=== PATIENT | female | born 1935 | race Caucasian/White ===

== ENCOUNTER 2017-07-24 12:02 | Inpatient (IN) ==
[2017-07-24] MEDS ORDERED: ALBUTEROL/IPRATROPIUM 3 ML NEB RESP TX STA (12:14)
[2017-07-24] MEDS ORDERED: SODIUM CHLORIDE 0.9% 500 ML IV STA (12:14)
[2017-07-24] MEDS ORDERED: CLINDAMYCIN INJ 900 MG in PREMIX 1 EACH IV STA (12:17)
[2017-07-24] MEDS ORDERED: methylPREDNISolone SOD SUC 125 MG/2 ML VIAL IV STA (12:18)
[2017-07-24 13:12] LABS: Basophils # 0.1 10*3/uL (0.0-0.2); Basophils % 0.3 % (0.0-0.8); Hematocrit 34.6 VOL% (35.7-47.0); Hemoglobin 11.1 GM/DL (12.0-16.0); Immature Granulocytes % 0.7 %; Immature Granulocytes Absolute 0.15 #; Lymphocytes # 1.1 10*3/uL (1.4-4.0); Lymphocytes % 5.1 % (21.3-54.2); Mean Corpuscular HGB Conc 32.1 GM/DL (32-36); Mean Corpuscular Hemoglobin 29 PG (27-34); Mean Corpuscular Volume 89.4 FL (87-102); Mean Platelet Volume 12.8 FL (9.6-12.0); Monocytes # 1.1 10*3/uL (0.11-0.8); Neutrophils # 19.7 10*3/uL (1.4-7.4); Neutrophils % 88.9 % (38.7-73.9); Platelet Count 197 T/CUMM (130-400); Red Blood Count 3.87 MC/CUMM (3.8-5.5); Red Cell Distribution Width 16.1 % (9.3-17.3); White Blood Count 22.2 T/CUMM (4-12)
[2017-07-24 13:16] LABS: PT Patient Result 10.9 SECS
[2017-07-24] MEDS ORDERED: methylPREDNISolone SOD SUC 125 MG/2 ML VIAL ONE (13:18)
[2017-07-24] MEDS ORDERED: CLINDAMYCIN INJ 50 ML IV ONE (13:18)
[2017-07-24] MEDS ORDERED: DOXYCYCLINE HYCLATE INJ 100 MG in SODIUM CHLORIDE 0.9% 100 ML IV STA (13:23)
[2017-07-24] MEDS ORDERED: SODIUM CHLORIDE 0.9% 1,000 ML IV STA (13:23)
[2017-07-24 13:26] LABS: Apearance,Urine CLOUDY (Clear); Bilirubin,Urine Negative (Negative); Blood, Urine Negative (Negative); Glucose,Urine (UA) 150 mg/dL (Negative); Hyaline Casts,Urine 7 /LPF (0-3); Ketones,Urine Negative (Negative); Mucus,Urine Occasional /LPF (Occasional); Nitrite,Urine Negative (Negative); Protein,Urine 30 MG/DL; RBC,Urine 1 /HPF (0-4); Squamous Epithelial Cell,Urine Occasional /HPF (0-10); Urine Color Amber (Yellow); Urine Specific Gravity 1.018 (1.001-1.035); WBC,Urine 2 /HPF (0-6)
[2017-07-24 13:36] LABS: Albumin 2.8 G/DL (3.4-5.0); Bilirubin,Total 0.7 MG/DL (0.2-1.0); Calcium 10.7 MG/DL (8.5-10.1); Osmolality,Calculated 284.7 MOS/KG (273-304); Potassium 4.4 MMOL/L (3.5-5.1); Total Protein 6.7 G/DL (6.4-8.3)
[2017-07-24] MEDS ORDERED: DOXYCYCLINE HYCLATE 100 MG VIAL ONE (14:10)
[2017-07-24] MEDS ORDERED: MORPHINE 2 MG/1 ML SYRINGE IV PRN (15:40)
[2017-07-24] MEDS ORDERED: DEXTROSE 50% 25 GM/50 ML VIAL IV PRN (15:40)
[2017-07-24] MEDS ORDERED: GLUCAGON 1 MG VIAL IM PRN (15:40)
[2017-07-24 16:30] LABS: Band Neutrophils 8 % (0-10); Lymphocytes 4 % (20-55); Platelet Estimate Normal; Segmented Neutrophils 82 % (50-85); Total Cells Counted 100
[2017-07-24] MEDS: SODIUM CHLORIDE 0.9% 1,000 ML IV SCH (16:58)
[2017-07-24] MEDS: INSULIN LISPRO 100 UNIT/ML SUBCUT SCH ×3 (17:24→21:47)
[2017-07-24] MEDS: metFORMIN 500 MG TABLET PEG SCH (18:00)
[2017-07-24] MEDS: PANTOPRAZOLE 40 MG TABLET PO SCH (18:00)
[2017-07-24] MEDS: CALCIUM (CARBONATE)/VITAMIN D 600 MG-400 UNIT TABLET PEG SCH (20:35)
[2017-07-24] MEDS: PREGABALIN 75 MG CAPSULE PEG SCH (20:36)
[2017-07-24] MEDS: DIAZEPAM 5 MG TABLET PEG SCH (20:36)
[2017-07-24] MEDS: ATORVASTATIN 10 MG TABLET PEG SCH (20:36)
[2017-07-24] MEDS: BACLOFEN 10 MG TABLET PEG SCH (20:36)
[2017-07-24] MEDS: CLINDAMYCIN INJ 900 MG in PREMIX 1 EACH IV SCH (20:48)
[2017-07-25] MEDS: DOXYCYCLINE HYCLATE INJ 100 MG in SODIUM CHLORIDE 0.9% 100 ML IV SCH ×2 (00:13→14:13)
[2017-07-25] MEDS: SODIUM CHLORIDE 0.9% 1,000 ML IV SCH ×3 (01:55→15:55)
[2017-07-25] MEDS: CLINDAMYCIN INJ 900 MG in PREMIX 1 EACH IV SCH ×3 (03:52→21:05)
[2017-07-25 06:15] LABS: Basophils % 0.1 % (0.0-0.8); Hematocrit 28.8 VOL% (35.7-47.0); Hemoglobin 9.4 GM/DL (12.0-16.0); Immature Granulocytes % 0.5 %; Immature Granulocytes Absolute 0.09 #; Lymphocytes # 0.7 10*3/uL (1.4-4.0); Mean Corpuscular HGB Conc 32.6 GM/DL (32-36); Mean Corpuscular Hemoglobin 29 PG (27-34); Mean Corpuscular Volume 87.5 FL (87-102); Mean Platelet Volume 13.4 FL (9.6-12.0); Monocytes # 0.8 10*3/uL (0.11-0.8); Monocytes % 4.2 % (1.7-12.7); Neutrophils # 16.9 10*3/uL (1.4-7.4); Neutrophils % 91.2 % (38.7-73.9); Platelet Count 165 T/CUMM (130-400); Red Blood Count 3.29 MC/CUMM (3.8-5.5); Red Cell Distribution Width 16.1 % (9.3-17.3); White Blood Count 18.5 T/CUMM (4-12)
[2017-07-25 06:39] LABS: Band Neutrophils 8 % (0-10); Giant Platelets Few; Hypochromasia 1+; Lymphocytes 4 % (20-55); Platelet Estimate Normal; Segmented Neutrophils 86 % (50-85); Total Cells Counted 100
[2017-07-25 06:40] LABS: Microcytosis Slight
[2017-07-25 06:51] LABS: Calcium 9.3 MG/DL (8.5-10.1); Osmolality,Calculated 288.7 MOS/KG (273-304); Potassium 4.8 MMOL/L (3.5-5.1)
[2017-07-25] MEDS: INSULIN LISPRO 100 UNIT/ML SUBCUT SCH ×4 (08:52→21:06)
[2017-07-25] MEDS: PANTOPRAZOLE 40 MG TABLET PO SCH (09:33)
[2017-07-25] MEDS: metFORMIN 500 MG TABLET PEG SCH ×2 (09:33→16:43)
[2017-07-25] MEDS: MULTIVITAMIN (CENTRUM) TABLET PEG SCH (09:33)
[2017-07-25] MEDS: FAMOTIDINE 20 MG TABLET PEG SCH (09:33)
[2017-07-25] MEDS: DIAZEPAM 5 MG TABLET PEG SCH ×2 (10:28→21:11)
[2017-07-25] MEDS: CALCIUM (CARBONATE)/VITAMIN D 600 MG-400 UNIT TABLET PEG SCH ×2 (10:28→21:05)
[2017-07-25] MEDS: PREGABALIN 75 MG CAPSULE PEG SCH (21:05)
[2017-07-25] MEDS: ATORVASTATIN 10 MG TABLET PEG SCH (21:05)
[2017-07-25] MEDS: BACLOFEN 10 MG TABLET PEG SCH (21:05)
[2017-07-25] MEDS: ZINC OXIDE PASTE 113 GM TUBE TOP SCH (21:07)
[2017-07-26] MEDS: DOXYCYCLINE HYCLATE INJ 100 MG in SODIUM CHLORIDE 0.9% 100 ML IV SCH (01:25)
[2017-07-26] MEDS: SODIUM CHLORIDE 0.9% 1,000 ML IV SCH (04:39)
[2017-07-26] MEDS: CLINDAMYCIN INJ 900 MG in PREMIX 1 EACH IV SCH (04:39)
[2017-07-26 07:41] LABS: Basophils % 0.2 % (0.0-0.8); Eosinophils # 0.1 10*3/uL (0.0-0.87); Eosinophils % 1.1 % (0.00-10.9); Hematocrit 29.3 VOL% (35.7-47.0); Hemoglobin 9.6 GM/DL (12.0-16.0); Immature Granulocytes % 1.2 %; Immature Granulocytes Absolute 0.15 #; Lymphocytes # 1.8 10*3/uL (1.4-4.0); Lymphocytes % 13.8 % (21.3-54.2); Mean Corpuscular HGB Conc 32.8 GM/DL (32-36); Mean Corpuscular Hemoglobin 29 PG (27-34); Mean Corpuscular Volume 88.3 FL (87-102); Mean Platelet Volume 12.9 FL (9.6-12.0); Neutrophils # 9.7 10*3/uL (1.4-7.4); Neutrophils % 75.7 % (38.7-73.9); Platelet Count 168 T/CUMM (130-400); Red Blood Count 3.32 MC/CUMM (3.8-5.5); Red Cell Distribution Width 16.6 % (9.3-17.3); White Blood Count 12.8 T/CUMM (4-12)
[2017-07-26 08:11] LABS: Calcium 9.1 MG/DL (8.5-10.1); Osmolality,Calculated 301.3 MOS/KG (273-304); Potassium 4.2 MMOL/L (3.5-5.1)
[2017-07-26 08:45] VITALS: BP 119/61
[2017-07-26] MEDS: FAMOTIDINE 20 MG TABLET PEG SCH (09:32)
[2017-07-26] MEDS: MULTIVITAMIN (CENTRUM) TABLET PEG SCH (09:32)
[2017-07-26] MEDS: metFORMIN 500 MG TABLET PEG SCH (09:32)
[2017-07-26] MEDS: CALCIUM (CARBONATE)/VITAMIN D 600 MG-400 UNIT TABLET PEG SCH (09:33)
[2017-07-26] MEDS: INSULIN LISPRO 100 UNIT/ML SUBCUT SCH (09:33)
[2017-07-26] MEDS: DIAZEPAM 5 MG TABLET PEG SCH (09:34)
[2017-07-26] MEDS: PANTOPRAZOLE 40 MG TABLET PO SCH (09:37)
[2017-07-26] MEDS: ZINC OXIDE PASTE 113 GM TUBE TOP SCH (09:37)
== END 2017-07-26 14:49 | disposition home health service (06) | DRG 871 ==
LOC: EDBD → EDUNIT# → N.ED 12:02 → N.EDINP 13:51 → SUATTDRO 13:51 → N.EDINP 16:10 → N.5E 17:01
PROVIDERS: ADMIT Hospitalist; ATTEND Internal Medicine

== ENCOUNTER 2018-02-19 13:15 | Inpatient (IN) ==
[2018-02-19] MEDS ORDERED: DEXTROSE 50% 25 GM/50 ML SYRINGE IV ONE (13:29)
[2018-02-19 14:20] LABS: Basophils % 0.1 % (0.0-0.8); Eosinophils # 0.1 10*3/uL (0.0-0.87); Eosinophils % 1.3 % (0.00-10.9); Hematocrit 38.1 VOL% (35.7-47.0); Immature Granulocytes % 0.4 %; Immature Granulocytes Absolute 0.03 #; Lymphocytes % 13.4 % (21.3-54.2); Mean Corpuscular HGB Conc 31.5 GM/DL (32-36); Mean Corpuscular Hemoglobin 28 PG (27-34); Mean Corpuscular Volume 88.8 FL (87-102); Mean Platelet Volume 14.2 FL (9.6-12.0); Monocytes # 0.7 10*3/uL (0.11-0.8); Monocytes % 8.5 % (1.7-12.7); Neutrophils # 5.9 10*3/uL (1.4-7.4); Neutrophils % 76.3 % (38.7-73.9); Platelet Count 132 T/CUMM (130-400); Red Blood Count 4.29 MC/CUMM (3.8-5.5); Red Cell Distribution Width 18.3 % (9.3-17.3); White Blood Count 7.8 T/CUMM (4-12)
[2018-02-19 14:34] LABS: Apearance,Urine Slightly Hazy (Clear); Bilirubin,Urine Negative (Negative); Blood, Urine Negative (Negative); Glucose,Urine (UA) Negative (Negative); Hyaline Casts,Urine 7 /LPF (0-3); Ketones,Urine Negative (Negative); Mucus,Urine Occasional /LPF (Occasional); Nitrite,Urine Negative (Negative); Protein,Urine Negative; Squamous Epithelial Cell,Urine Occasional /HPF (0-10); Urine Color Yellow (Yellow); Urine Specific Gravity 1.008 (1.001-1.035); Urine Urobilinogen < 2.0 EU/DL (0.2-1.0); WBC,Urine 2 /HPF (0-6)
[2018-02-19 14:42] LABS: Alanine Aminotransferase 55 U/L (13-56); Albumin 3.2 G/DL (3.4-5.0); Alkaline Phosphatase 129 U/L (45-117); Aspartate Amino Transferase 33 U/L (0-37); Bilirubin,Total < 0.39 MG/DL (0.2-1.0); Blood Urea Nitrogen 36 MG/DL (7-18); Calcium 13.4 MG/DL (8.5-10.1); Glucose 81 MG/DL (74-106); Osmolality,Calculated 289.1 MOS/KG (273-304); Potassium 5.4 MMOL/L (3.5-5.1); Sodium 142 MMOL/L (136-145); Total Protein 7.2 G/DL (6.4-8.3)
[2018-02-19 14:47] LABS: Lactic Acid 2.3 MMOL/L (0.4-2.0)
[2018-02-19] MEDS ORDERED: SODIUM CHLORIDE 0.9% 1,000 ML IV STA (15:52)
[2018-02-19] MEDS ORDERED: FUROSEMIDE 40 MG/4 ML VIAL IV STA (16:03)
[2018-02-19] MEDS ORDERED: GLUCAGON 1 MG VIAL IM PRN (17:51)
[2018-02-19] MEDS: INSULIN LISPRO 100 UNIT/ML SUBCUT SCH (18:33)
[2018-02-19] MEDS: ENOXAPARIN 40 MG/0.4 ML SYRINGE SUBCUT SCH (18:35)
[2018-02-19] MEDS: SODIUM CHLORIDE 0.9% 1,000 ML IV SCH (18:35)
[2018-02-19] MEDS ORDERED: LABETALOL 100 MG/20 ML VIAL IV ONE (19:01)
[2018-02-19] MEDS ORDERED: SODIUM POLYSTYRENE SULFATE 15 GM/60 ML BOTTLE PO STA (21:50)
[2018-02-19] MEDS: ATORVASTATIN 10 MG TABLET PEG SCH (22:48)
[2018-02-19] MEDS: DIAZEPAM 5 MG TABLET PEG SCH (22:48)
[2018-02-19] MEDS: BACLOFEN 10 MG TABLET PEG SCH (22:48)
[2018-02-19] MEDS: PREGABALIN 75 MG CAPSULE PEG SCH (22:49)
[2018-02-19] MEDS: DOXYCYCLINE HYCLATE INJ 100 MG in SODIUM CHLORIDE 0.9% 100 ML IV SCH (23:55)
[2018-02-20] MEDS: INSULIN LISPRO 100 UNIT/ML SUBCUT SCH ×4 (00:40→18:30)
[2018-02-20 02:47] LABS: Apearance,Urine CLEAR (Clear); Bilirubin,Urine Negative (Negative); Blood, Urine Negative (Negative); Glucose,Urine (UA) Negative (Negative); Hyaline Casts,Urine 2 /LPF (0-3); Ketones,Urine Negative (Negative); Nitrite,Urine Negative (Negative); Protein,Urine Negative; RBC,Urine <1 /HPF (0-4); Urine Color Straw (Yellow); Urine Specific Gravity 1.004 (1.001-1.035); Urine Urobilinogen < 2.0 EU/DL (0.2-1.0); WBC,Urine <1 /HPF (0-6)
[2018-02-20 05:05] LABS: Basophils % 0.2 % (0.0-0.8); Eosinophils # 0.1 10*3/uL (0.0-0.87); Eosinophils % 1.3 % (0.00-10.9); Hematocrit 36.2 VOL% (35.7-47.0); Hemoglobin 11.2 GM/DL (12.0-16.0); Immature Granulocytes % 0.6 %; Immature Granulocytes Absolute 0.04 #; Mean Corpuscular HGB Conc 30.9 GM/DL (32-36); Mean Corpuscular Hemoglobin 28 PG (27-34); Mean Platelet Volume 13.4 FL (9.6-12.0); Monocytes # 0.7 10*3/uL (0.11-0.8); Monocytes % 11.2 % (1.7-12.7); Neutrophils # 4.6 10*3/uL (1.4-7.4); Neutrophils % 71.7 % (38.7-73.9); Platelet Count 107 T/CUMM (130-400); Red Blood Count 3.98 MC/CUMM (3.8-5.5); Red Cell Distribution Width 18.1 % (9.3-17.3); White Blood Count 6.4 T/CUMM (4-12)
[2018-02-20] MEDS: DEXTROSE 50% 25 GM/50 ML VIAL IV PRN ×2 (05:18→12:42)
[2018-02-20 05:36] LABS: Albumin 2.6 G/DL (3.4-5.0); Bilirubin,Total 0.4 MG/DL (0.2-1.0); Calcium 12.5 MG/DL (8.5-10.1); Osmolality,Calculated 301.1 MOS/KG (273-304); Potassium 4.2 MMOL/L (3.5-5.1); Risk Ratio 1.91; Total Protein 6.3 G/DL (6.4-8.3); VLDL CHOLESTEROL 35.2 MG/DL
[2018-02-20] MEDS: SODIUM CHLORIDE 0.9% 1,000 ML IV SCH (06:02)
[2018-02-20] MEDS ORDERED: metFORMIN 500 MG TABLET PEG SCH (08:00)
[2018-02-20] MEDS: FAMOTIDINE 20 MG TABLET PEG SCH (09:52)
[2018-02-20] MEDS: DOXYCYCLINE HYCLATE INJ 100 MG in SODIUM CHLORIDE 0.9% 100 ML IV SCH ×2 (09:53→22:40)
[2018-02-20] MEDS: CALCITONIN 400 UNIT/2 ML VIAL SUBCUT SCH (16:56)
[2018-02-20] MEDS: SKIN HEALING OINT (AQUAPHOR) 50 GM TUBE TOP SCH (18:30)
[2018-02-20] MEDS: BACLOFEN 10 MG TABLET PEG SCH (20:42)
[2018-02-20] MEDS: DIAZEPAM 5 MG TABLET PEG SCH (20:42)
[2018-02-20] MEDS: ATORVASTATIN 10 MG TABLET PEG SCH (20:42)
[2018-02-20] MEDS: PREGABALIN 75 MG CAPSULE PEG SCH (20:42)
[2018-02-21] MEDS: INSULIN LISPRO 100 UNIT/ML SUBCUT SCH ×4 (03:02→18:56)
[2018-02-21] MEDS: CALCITONIN 400 UNIT/2 ML VIAL SUBCUT SCH ×2 (03:40→19:40)
[2018-02-21 05:51] LABS: Basophils % 0.1 % (0.0-0.8); Eosinophils # 0.1 10*3/uL (0.0-0.87); Hematocrit 36.5 VOL% (35.7-47.0); Hemoglobin 11.3 GM/DL (12.0-16.0); Immature Granulocytes % 0.3 %; Immature Granulocytes Absolute 0.03 #; Lymphocytes # 0.9 10*3/uL (1.4-4.0); Lymphocytes % 10.3 % (21.3-54.2); Mean Corpuscular Hemoglobin 28 PG (27-34); Mean Platelet Volume 13.7 FL (9.6-12.0); Monocytes # 0.7 10*3/uL (0.11-0.8); Monocytes % 8.2 % (1.7-12.7); Neutrophils % 80.1 % (38.7-73.9); Platelet Count 117 T/CUMM (130-400); Red Blood Count 4.01 MC/CUMM (3.8-5.5); Red Cell Distribution Width 18.3 % (9.3-17.3); White Blood Count 8.8 T/CUMM (4-12)
[2018-02-21 06:27] LABS: Prealbumin 32.8 MG/DL (20-40)
[2018-02-21 06:41] LABS: Alanine Aminotransferase 51 U/L (13-56); Albumin 2.8 G/DL (3.4-5.0); Alkaline Phosphatase 126 U/L (45-117); Aspartate Amino Transferase 32 U/L (0-37); Bilirubin,Total < 0.39 MG/DL (0.2-1.0); Blood Urea Nitrogen 32 MG/DL (7-18); Calcium 10.6 MG/DL (8.5-10.1); Glucose 106 MG/DL (74-106); Osmolality,Calculated 298.4 MOS/KG (273-304); Potassium 4.2 MMOL/L (3.5-5.1); Sodium 147 MMOL/L (136-145); Total Protein 6.5 G/DL (6.4-8.3)
[2018-02-21] MEDS: DOXYCYCLINE HYCLATE INJ 100 MG in SODIUM CHLORIDE 0.9% 100 ML IV SCH (10:50)
[2018-02-21] MEDS: FAMOTIDINE 20 MG TABLET PEG SCH (11:13)
[2018-02-21] MEDS ORDERED: SODIUM CHLORIDE 0.9% 1,000 ML IV SCH ×2 (12:30→13:00)
[2018-02-21 13:53] LABS: Troponin I Only < 0.015 NG/ML (0.00-0.045)
[2018-02-21 14:08] LABS: Folate 22.4 NG/ML (5.4-24.0)
[2018-02-21] MEDS: ACETYLCYSTEINE 20% 800 MG/4 ML VIAL RESP TX SCH (14:15)
[2018-02-21] MEDS: SKIN HEALING OINT (AQUAPHOR) 50 GM TUBE TOP SCH (18:25)
[2018-02-21] MEDS: POTASSIUM PHOS/SOD PHOS POWDER 250 MG PACK PO SCH (19:40)
[2018-02-21] MEDS: ENOXAPARIN 40 MG/0.4 ML SYRINGE SUBCUT SCH (19:45)
[2018-02-21] MEDS: SODIUM CHLORIDE 0.45% 1,000 ML IV SCH (19:45)
[2018-02-21] MEDS: DIAZEPAM 5 MG TABLET PEG SCH (21:26)
[2018-02-21] MEDS: BACLOFEN 10 MG TABLET PEG SCH (21:26)
[2018-02-21] MEDS: ATORVASTATIN 10 MG TABLET PEG SCH (21:27)
[2018-02-21] MEDS: PREGABALIN 75 MG CAPSULE PEG SCH (21:27)
[2018-02-22] MEDS: DOXYCYCLINE HYCLATE INJ 100 MG in SODIUM CHLORIDE 0.9% 100 ML IV SCH ×3 (00:15→23:06)
[2018-02-22] MEDS: INSULIN LISPRO 100 UNIT/ML SUBCUT SCH ×4 (00:38→18:46)
[2018-02-22] MEDS: ACETYLCYSTEINE 20% 800 MG/4 ML VIAL RESP TX SCH ×3 (00:40→14:56)
[2018-02-22] MEDS: ALBUTEROL 2.5 MG/3 ML NEB RESP TX PRN ×2 (00:40→07:36)
[2018-02-22] MEDS: CALCITONIN 400 UNIT/2 ML VIAL SUBCUT SCH ×2 (04:10→15:15)
[2018-02-22] MEDS: POTASSIUM PHOS/SOD PHOS POWDER 250 MG PACK PO SCH ×4 (04:13→22:33)
[2018-02-22 04:59] LABS: Calcium 8.6 MG/DL (8.5-10.1); Osmolality,Calculated 301.3 MOS/KG (273-304); Potassium 4.1 MMOL/L (3.5-5.1)
[2018-02-22] MEDS: SODIUM CHLORIDE 0.45% 1,000 ML IV SCH (05:58)
[2018-02-22] MEDS: ONDANSETRON 4 MG/2 ML VIAL IV PRN ×2 (09:35→23:01)
[2018-02-22] MEDS: FAMOTIDINE 20 MG TABLET PEG SCH (10:08)
[2018-02-22] MEDS: SKIN HEALING OINT (AQUAPHOR) 50 GM TUBE TOP SCH (10:09)
[2018-02-22] MEDS: ALBUTEROL/IPRATROPIUM 3 ML NEB RESP TX SCH ×3 (11:39→20:37)
[2018-02-22] MEDS: methylPREDNISolone SOD SUC 40 MG/1 ML VIAL IV SCH ×2 (12:03→23:05)
[2018-02-22] MEDS: CLINDAMYCIN INJ 300 MG in PREMIX 1 EACH IV SCH ×2 (12:04→22:29)
[2018-02-22] MEDS: MONTELUKAST 10 MG TABLET PO SCH (15:15)
[2018-02-22] MEDS: ENOXAPARIN 40 MG/0.4 ML SYRINGE SUBCUT SCH (18:46)
[2018-02-22] MEDS: ATORVASTATIN 10 MG TABLET PEG SCH (22:30)
[2018-02-22] MEDS: PREGABALIN 75 MG CAPSULE PEG SCH (22:32)
[2018-02-22] MEDS: BACLOFEN 10 MG TABLET PEG SCH (22:32)
[2018-02-22] MEDS: DIAZEPAM 5 MG TABLET PEG SCH (22:33)
[2018-02-23] MEDS: ACETYLCYSTEINE 20% 800 MG/4 ML VIAL RESP TX SCH ×3 (00:23→15:07)
[2018-02-23] MEDS: ALBUTEROL/IPRATROPIUM 3 ML NEB RESP TX SCH ×6 (00:23→19:31)
[2018-02-23] MEDS: INSULIN LISPRO 100 UNIT/ML SUBCUT SCH ×4 (01:00→18:48)
[2018-02-23] MEDS: CLINDAMYCIN INJ 300 MG in PREMIX 1 EACH IV SCH ×3 (05:31→21:26)
[2018-02-23] MEDS: CALCITONIN 400 UNIT/2 ML VIAL SUBCUT SCH ×2 (05:32→06:31)
[2018-02-23 05:46] LABS: Basophils % 0.1 % (0.0-0.8); Hematocrit 33.3 VOL% (35.7-47.0); Hemoglobin 10.9 GM/DL (12.0-16.0); Immature Granulocytes % 0.3 %; Immature Granulocytes Absolute 0.08 #; Lymphocytes # 0.4 10*3/uL (1.4-4.0); Lymphocytes % 1.5 % (21.3-54.2); Mean Corpuscular HGB Conc 32.7 GM/DL (32-36); Mean Corpuscular Hemoglobin 28 PG (27-34); Mean Corpuscular Volume 86.7 FL (87-102); Mean Platelet Volume 14.1 FL (9.6-12.0); Monocytes # 1.7 10*3/uL (0.11-0.8); Monocytes % 7.3 % (1.7-12.7); Neutrophils # 21.4 10*3/uL (1.4-7.4); Neutrophils % 90.8 % (38.7-73.9); Platelet Count 103 T/CUMM (130-400); Red Blood Count 3.84 MC/CUMM (3.8-5.5); Red Cell Distribution Width 18.6 % (9.3-17.3); White Blood Count 23.6 T/CUMM (4-12)
[2018-02-23 06:15] LABS: Band Neutrophils 10 % (0-10); Lymphocytes 1 % (20-55); Segmented Neutrophils 83 % (50-85); Total Cells Counted 100
[2018-02-23 06:16] LABS: Hypochromasia 1+; Microcytosis 1+; Platelet Estimate Decreased
[2018-02-23 06:42] LABS: PT Patient Result 10.7 SECS; Partial Thromboplastin Time 27.5 SECS (0-40)
[2018-02-23] MEDS ORDERED: BENZONATATE 100 MG CAPSULE PO ONE (08:00)
[2018-02-23] MEDS ORDERED: diphenhydrAMINE 50 MG/1 ML VIAL IM ONE (08:00)
[2018-02-23] MEDS ORDERED: LIDOCAINE 2% VISCOUS 100 ML BOTTLE SWISH/SPIT ONE (08:30)
[2018-02-23] MEDS ORDERED: LIDOCAINE 1% 20 ML VIAL MISC INJ ONE (08:30)
[2018-02-23] MEDS ORDERED: LIDOCAINE 2% 20 ML VIAL RESP TX ONE (08:30)
[2018-02-23] MEDS: DOXYCYCLINE HYCLATE INJ 100 MG in SODIUM CHLORIDE 0.9% 100 ML IV SCH ×2 (10:58→22:27)
[2018-02-23] MEDS: methylPREDNISolone SOD SUC 40 MG/1 ML VIAL IV SCH ×2 (12:30→22:29)
[2018-02-23] MEDS: FAMOTIDINE 20 MG TABLET PEG SCH (13:09)
[2018-02-23] MEDS: POTASSIUM PHOS/SOD PHOS POWDER 250 MG PACK PO SCH ×3 (13:09→21:24)
[2018-02-23] MEDS: MONTELUKAST 10 MG TABLET PO SCH (13:09)
[2018-02-23] MEDS: SKIN HEALING OINT (AQUAPHOR) 50 GM TUBE TOP SCH (13:43)
[2018-02-23] MEDS: ENOXAPARIN 40 MG/0.4 ML SYRINGE SUBCUT SCH (18:48)
[2018-02-23] MEDS: PREGABALIN 75 MG CAPSULE PEG SCH (21:24)
[2018-02-23] MEDS: BACLOFEN 10 MG TABLET PEG SCH (21:24)
[2018-02-23] MEDS: ATORVASTATIN 10 MG TABLET PEG SCH (21:24)
[2018-02-23] MEDS: DIAZEPAM 5 MG TABLET PEG SCH (21:25)
[2018-02-24] MEDS: ALBUTEROL/IPRATROPIUM 3 ML NEB RESP TX SCH ×7 (00:12→23:53)
[2018-02-24] MEDS: ACETYLCYSTEINE 20% 800 MG/4 ML VIAL RESP TX SCH ×4 (00:12→23:53)
[2018-02-24] MEDS: INSULIN LISPRO 100 UNIT/ML SUBCUT SCH ×4 (00:21→19:09)
[2018-02-24] MEDS: CLINDAMYCIN INJ 300 MG in PREMIX 1 EACH IV SCH ×2 (03:54→14:25)
[2018-02-24 04:52] LABS: Basophils % 0.1 % (0.0-0.8); Hematocrit 28.3 VOL% (35.7-47.0); Hemoglobin 9.1 GM/DL (12.0-16.0); Immature Granulocytes % 0.3 %; Immature Granulocytes Absolute 0.04 #; Lymphocytes # 0.4 10*3/uL (1.4-4.0); Lymphocytes % 2.8 % (21.3-54.2); Mean Corpuscular HGB Conc 32.2 GM/DL (32-36); Mean Corpuscular Hemoglobin 29 PG (27-34); Mean Platelet Volume 13.1 FL (9.6-12.0); Monocytes % 8.1 % (1.7-12.7); Neutrophils # 11.1 10*3/uL (1.4-7.4); Neutrophils % 88.7 % (38.7-73.9); Platelet Count 91 T/CUMM (130-400); Red Blood Count 3.18 MC/CUMM (3.8-5.5); Red Cell Distribution Width 18.4 % (9.3-17.3); White Blood Count 12.5 T/CUMM (4-12)
[2018-02-24 04:54] LABS: INR 1.1; PT Patient Result 11.4 SECS; Partial Thromboplastin Time 31.4 SECS (0-40)
[2018-02-24 05:13] LABS: Calcium 9.4 MG/DL (8.5-10.1); Osmolality,Calculated 303.3 MOS/KG (273-304); Potassium 4.4 MMOL/L (3.5-5.1)
[2018-02-24 05:49] LABS: Band Neutrophils 9 % (0-10); Hypochromasia 1+; Lymphocytes 3 % (20-55); Microcytosis 1+; Platelet Estimate Decreased; Segmented Neutrophils 84 % (50-85); Total Cells Counted 100
[2018-02-24] MEDS ORDERED: diphenhydrAMINE 50 MG/1 ML VIAL IM ONE (08:00)
[2018-02-24] MEDS ORDERED: LIDOCAINE 2% 20 ML VIAL RESP TX ONE (08:30)
[2018-02-24] MEDS ORDERED: LIDOCAINE 2% VISCOUS 100 ML BOTTLE SWISH/SPIT ONE (08:30)
[2018-02-24] MEDS ORDERED: LIDOCAINE 1% 20 ML VIAL MISC INJ ONE (08:30)
[2018-02-24] MEDS ORDERED: DEXTROSE 5% NACL 0.45% 1,000 ML IV SCH (11:30)
[2018-02-24] MEDS: POTASSIUM PHOS/SOD PHOS POWDER 250 MG PACK PO SCH ×4 (12:40→22:27)
[2018-02-24] MEDS: SKIN HEALING OINT (AQUAPHOR) 50 GM TUBE TOP SCH (13:02)
[2018-02-24] MEDS: MONTELUKAST 10 MG TABLET PO SCH (13:02)
[2018-02-24] MEDS: FAMOTIDINE 20 MG TABLET PEG SCH (13:02)
[2018-02-24] MEDS: methylPREDNISolone SOD SUC 40 MG/1 ML VIAL IV SCH (13:08)
[2018-02-24] MEDS: MEROPENEM 500 MG in SODIUM CHLORIDE 0.9% 100 ML IV SCH ×2 (13:13→20:31)
[2018-02-24] MEDS: DOXYCYCLINE HYCLATE INJ 100 MG in SODIUM CHLORIDE 0.9% 100 ML IV SCH (13:29)
[2018-02-24] MEDS ORDERED: BISACODYL 5 MG TABLET PO ONE (17:41)
[2018-02-24] MEDS ORDERED: LACTULOSE 20 GM/30 ML UDCUP PO ONE (17:41)
[2018-02-24] MEDS ORDERED: MAGNESIUM HYDROXIDE SUSP 30 ML UDCUP PO ONE (17:42)
[2018-02-24] MEDS: ENOXAPARIN 40 MG/0.4 ML SYRINGE SUBCUT SCH (18:23)
[2018-02-24 18:30] LABS: Apearance,Urine CLEAR (Clear); Bilirubin,Urine Negative (Negative); Blood, Urine Negative (Negative); Glucose,Urine (UA) 150 mg/dL (Negative); Ketones,Urine Negative (Negative); Nitrite,Urine Negative (Negative); Protein,Urine Negative; RBC,Urine 12 /HPF (0-4); Squamous Epithelial Cell,Urine Occasional /HPF (0-10); Urine Color Yellow (Yellow); Urine Specific Gravity 1.011 (1.001-1.035); Urine Urobilinogen < 2.0 EU/DL (0.2-1.0); WBC,Urine 2 /HPF (0-6)
[2018-02-24] MEDS: VANCOMYCIN INJ 1,000 MG in SODIUM CHLORIDE 0.9% 250 ML IV SCH (22:00)
[2018-02-24] MEDS ORDERED: ACETAMINOPHEN 325 MG TABLET PO PRN (22:04)
[2018-02-24] MEDS: BACLOFEN 10 MG TABLET PEG SCH (22:24)
[2018-02-24] MEDS: DIAZEPAM 5 MG TABLET PEG SCH (22:26)
[2018-02-24] MEDS: PREGABALIN 75 MG CAPSULE PEG SCH (22:26)
[2018-02-24] MEDS: ATORVASTATIN 10 MG TABLET PEG SCH (22:27)
[2018-02-25] MEDS: methylPREDNISolone SOD SUC 40 MG/1 ML VIAL IV SCH ×3 (00:29→23:57)
[2018-02-25] MEDS: INSULIN LISPRO 100 UNIT/ML SUBCUT SCH ×4 (00:30→18:22)
[2018-02-25] MEDS: MEROPENEM 500 MG in SODIUM CHLORIDE 0.9% 100 ML IV SCH ×3 (03:41→21:18)
[2018-02-25] MEDS: ALBUTEROL/IPRATROPIUM 3 ML NEB RESP TX SCH ×6 (03:49→22:54)
[2018-02-25 04:46] LABS: Basophils % 0.1 % (0.0-0.8); Hematocrit 27.3 VOL% (35.7-47.0); Hemoglobin 8.6 GM/DL (12.0-16.0); Immature Granulocytes % 0.6 %; Immature Granulocytes Absolute 0.09 #; Lymphocytes # 0.3 10*3/uL (1.4-4.0); Lymphocytes % 2.1 % (21.3-54.2); Mean Corpuscular HGB Conc 31.5 GM/DL (32-36); Mean Corpuscular Hemoglobin 29 PG (27-34); Mean Corpuscular Volume 90.7 FL (87-102); Mean Platelet Volume 13.7 FL (9.6-12.0); Monocytes # 1.1 10*3/uL (0.11-0.8); Monocytes % 7.6 % (1.7-12.7); Neutrophils # 12.6 10*3/uL (1.4-7.4); Neutrophils % 89.6 % (38.7-73.9); Red Blood Count 3.01 MC/CUMM (3.8-5.5); Red Cell Distribution Width 18.6 % (9.3-17.3)
[2018-02-25 04:50] LABS: Platelet Count 93 T/CUMM (130-400)
[2018-02-25 04:59] LABS: Calcium 9.1 MG/DL (8.5-10.1); Osmolality,Calculated 302.7 MOS/KG (273-304); Potassium 4.3 MMOL/L (3.5-5.1)
[2018-02-25 05:09] LABS: Band Neutrophils 2 % (0-10); Hypochromasia 1+; Lymphocytes 4 % (20-55); Segmented Neutrophils 92 % (50-85); Total Cells Counted 100
[2018-02-25 05:10] LABS: Giant Platelets Few
[2018-02-25 05:12] LABS: Platelet Estimate Decreased
[2018-02-25 05:13] LABS: Microcytosis 1+
[2018-02-25] MEDS: ACETYLCYSTEINE 20% 800 MG/4 ML VIAL RESP TX SCH ×3 (07:26→22:56)
[2018-02-25] MEDS: FAMOTIDINE 20 MG TABLET PEG SCH (10:30)
[2018-02-25] MEDS: MONTELUKAST 10 MG TABLET PO SCH (10:31)
[2018-02-25] MEDS: POTASSIUM PHOS/SOD PHOS POWDER 250 MG PACK PO SCH ×3 (10:31→21:18)
[2018-02-25] MEDS ORDERED: SCOPOLAMINE 1.5 MG PATCH TRANSDERM ONE (11:13)
[2018-02-25] MEDS ORDERED: FUROSEMIDE 40 MG/5 ML UDCUP PO ONE (11:13)
[2018-02-25 12:52] LABS: Calcium 9.8 MG/DL (8.5-10.1); Osmolality,Calculated 301.6 MOS/KG (273-304); Potassium 4.7 MMOL/L (3.5-5.1)
[2018-02-25] MEDS: SKIN HEALING OINT (AQUAPHOR) 50 GM TUBE TOP SCH (18:20)
[2018-02-25] MEDS: ENOXAPARIN 40 MG/0.4 ML SYRINGE SUBCUT SCH (18:22)
[2018-02-25] MEDS: BACLOFEN 10 MG TABLET PEG SCH (21:18)
[2018-02-25] MEDS: DIAZEPAM 5 MG TABLET PEG SCH (21:19)
[2018-02-25] MEDS: PREGABALIN 75 MG CAPSULE PEG SCH (21:19)
[2018-02-25] MEDS: ATORVASTATIN 10 MG TABLET PEG SCH (21:19)
[2018-02-25] MEDS: VANCOMYCIN INJ 1,000 MG in SODIUM CHLORIDE 0.9% 250 ML IV SCH (22:42)
[2018-02-26] MEDS: INSULIN LISPRO 100 UNIT/ML SUBCUT SCH ×4 (00:01→19:02)
[2018-02-26] MEDS: ALBUTEROL/IPRATROPIUM 3 ML NEB RESP TX SCH ×5 (02:25→19:28)
[2018-02-26] MEDS: MEROPENEM 500 MG in SODIUM CHLORIDE 0.9% 100 ML IV SCH ×3 (03:56→21:45)
[2018-02-26 04:15] LABS: Basophils % 0.2 % (0.0-0.8); Hematocrit 28.1 VOL% (35.7-47.0); Hemoglobin 9.1 GM/DL (12.0-16.0); Immature Granulocytes % 2.7 %; Lymphocytes # 0.4 10*3/uL (1.4-4.0); Lymphocytes % 2.9 % (21.3-54.2); Mean Corpuscular HGB Conc 32.4 GM/DL (32-36); Mean Corpuscular Hemoglobin 28 PG (27-34); Mean Corpuscular Volume 87.8 FL (87-102); Mean Platelet Volume 13.4 FL (9.6-12.0); Monocytes # 0.8 10*3/uL (0.11-0.8); Monocytes % 5.6 % (1.7-12.7); Neutrophils # 12.9 10*3/uL (1.4-7.4); Neutrophils % 88.6 % (38.7-73.9); Platelet Count 121 T/CUMM (130-400); Red Cell Distribution Width 18.6 % (9.3-17.3); White Blood Count 14.6 T/CUMM (4-12)
[2018-02-26 05:38] LABS: Hypochromasia 1+; Lymphocytes 1 % (20-55); Platelet Estimate Decreased; Segmented Neutrophils 94 % (50-85); Total Cells Counted 100
[2018-02-26 05:39] LABS: Microcytosis 1+
[2018-02-26] MEDS: ACETYLCYSTEINE 20% 800 MG/4 ML VIAL RESP TX SCH ×2 (07:34→14:20)
[2018-02-26] MEDS: FAMOTIDINE 20 MG TABLET PEG SCH (10:35)
[2018-02-26] MEDS: POTASSIUM PHOS/SOD PHOS POWDER 250 MG PACK PO SCH ×3 (10:35→21:44)
[2018-02-26] MEDS: MONTELUKAST 10 MG TABLET PO SCH (10:36)
[2018-02-26] MEDS: methylPREDNISolone SOD SUC 40 MG/1 ML VIAL IV SCH ×2 (10:50→23:15)
[2018-02-26] MEDS: SKIN HEALING OINT (AQUAPHOR) 50 GM TUBE TOP SCH (16:50)
[2018-02-26] MEDS: ENOXAPARIN 40 MG/0.4 ML SYRINGE SUBCUT SCH (19:02)
[2018-02-26] MEDS: BACLOFEN 10 MG TABLET PEG SCH (21:44)
[2018-02-26] MEDS: ATORVASTATIN 10 MG TABLET PEG SCH (21:45)
[2018-02-26] MEDS: DIAZEPAM 5 MG TABLET PEG SCH (21:45)
[2018-02-26] MEDS: PREGABALIN 75 MG CAPSULE PEG SCH (21:45)
[2018-02-27] MEDS: ALBUTEROL/IPRATROPIUM 3 ML NEB RESP TX SCH ×7 (00:03→23:00)
[2018-02-27] MEDS: ACETYLCYSTEINE 20% 800 MG/4 ML VIAL RESP TX SCH ×4 (00:03→23:00)
[2018-02-27] MEDS: INSULIN LISPRO 100 UNIT/ML SUBCUT SCH ×4 (00:15→18:15)
[2018-02-27 03:14] LABS: Basophils % 0.2 % (0.0-0.8); Eosinophils % 0.1 % (0.00-10.9); Hematocrit 29.2 VOL% (35.7-47.0); Hemoglobin 9.3 GM/DL (12.0-16.0); Immature Granulocytes % 4.2 %; Lymphocytes # 0.6 10*3/uL (1.4-4.0); Lymphocytes % 4.3 % (21.3-54.2); Mean Corpuscular HGB Conc 31.8 GM/DL (32-36); Mean Corpuscular Hemoglobin 29 PG (27-34); Mean Corpuscular Volume 89.8 FL (87-102); Mean Platelet Volume 13.4 FL (9.6-12.0); Monocytes # 1.1 10*3/uL (0.11-0.8); Monocytes % 7.4 % (1.7-12.7); NRBC # 0.03 10*3/uL; Neutrophils # 11.9 10*3/uL (1.4-7.4); Neutrophils % 83.8 % (38.7-73.9); Platelet Count 151 T/CUMM (130-400); Red Blood Count 3.25 MC/CUMM (3.8-5.5); Red Cell Distribution Width 18.1 % (9.3-17.3); White Blood Count 14.2 T/CUMM (4-12)
[2018-02-27 03:22] LABS: PT Patient Result 10.1 SECS; Partial Thromboplastin Time 24.7 SECS (0-40)
[2018-02-27 03:57] LABS: Hypochromasia 1+; Lymphocytes 8 % (20-55); Segmented Neutrophils 84 % (50-85)
[2018-02-27 03:58] LABS: Giant Platelets Few; Microcytosis 1+; Platelet Estimate Normal; Total Cells Counted 100
[2018-02-27] MEDS: MEROPENEM 500 MG in SODIUM CHLORIDE 0.9% 100 ML IV SCH ×3 (05:22→22:11)
[2018-02-27] MEDS ORDERED: diphenhydrAMINE 50 MG/1 ML VIAL IM ONE (08:00)
[2018-02-27] MEDS ORDERED: LIDOCAINE 2% VISCOUS 100 ML BOTTLE SWISH/SPIT ONE (08:30)
[2018-02-27] MEDS ORDERED: LIDOCAINE 2% 20 ML VIAL RESP TX ONE (08:30)
[2018-02-27] MEDS ORDERED: LIDOCAINE 1% 20 ML VIAL MISC INJ ONE (08:30)
[2018-02-27] MEDS: SKIN HEALING OINT (AQUAPHOR) 50 GM TUBE TOP SCH (11:52)
[2018-02-27] MEDS: methylPREDNISolone SOD SUC 40 MG/1 ML VIAL IV SCH (11:53)
[2018-02-27] MEDS: POTASSIUM PHOS/SOD PHOS POWDER 250 MG PACK PO SCH ×3 (11:54→22:11)
[2018-02-27] MEDS: FAMOTIDINE 20 MG TABLET PEG SCH (11:55)
[2018-02-27] MEDS: MONTELUKAST 10 MG TABLET PO SCH (11:55)
[2018-02-27 14:51] LABS: Calcium 9.1 MG/DL (8.5-10.1); Osmolality,Calculated 302.8 MOS/KG (273-304)
[2018-02-27] MEDS: GENTAMICIN INJ 160 MG in SODIUM CHLORIDE 0.9% 100 ML IV SCH (16:54)
[2018-02-27] MEDS: ENOXAPARIN 40 MG/0.4 ML SYRINGE SUBCUT SCH (17:48)
[2018-02-27] MEDS: BACLOFEN 10 MG TABLET PEG SCH (22:11)
[2018-02-27] MEDS: ATORVASTATIN 10 MG TABLET PEG SCH (22:11)
[2018-02-28] MEDS: methylPREDNISolone SOD SUC 40 MG/1 ML VIAL IV SCH ×3 (00:08→23:51)
[2018-02-28] MEDS: INSULIN LISPRO 100 UNIT/ML SUBCUT SCH ×5 (00:46→23:52)
[2018-02-28] MEDS: ALBUTEROL/IPRATROPIUM 3 ML NEB RESP TX SCH ×5 (03:00→19:06)
[2018-02-28 05:01] LABS: Basophils % 0.3 % (0.0-0.8); Eosinophils % 0.2 % (0.00-10.9); Hematocrit 30.1 VOL% (35.7-47.0); Hemoglobin 9.6 GM/DL (12.0-16.0); Immature Granulocytes % 6.4 %; Immature Granulocytes Absolute 0.76 #; Lymphocytes # 0.7 10*3/uL (1.4-4.0); Lymphocytes % 5.5 % (21.3-54.2); Mean Corpuscular HGB Conc 31.9 GM/DL (32-36); Mean Corpuscular Hemoglobin 29 PG (27-34); Mean Corpuscular Volume 89.6 FL (87-102); Mean Platelet Volume 13.1 FL (9.6-12.0); Monocytes # 0.9 10*3/uL (0.11-0.8); Monocytes % 7.3 % (1.7-12.7); NRBC # 0.05 10*3/uL; Neutrophils # 9.5 10*3/uL (1.4-7.4); Neutrophils % 80.3 % (38.7-73.9); Platelet Count 185 T/CUMM (130-400); Red Blood Count 3.36 MC/CUMM (3.8-5.5); Red Cell Distribution Width 17.8 % (9.3-17.3); White Blood Count 11.8 T/CUMM (4-12)
[2018-02-28] MEDS: MEROPENEM 500 MG in SODIUM CHLORIDE 0.9% 100 ML IV SCH ×2 (05:03→12:07)
[2018-02-28 05:17] LABS: Calcium 9.2 MG/DL (8.5-10.1); Osmolality,Calculated 299.1 MOS/KG (273-304); Potassium 5.2 MMOL/L (3.5-5.1)
[2018-02-28 05:24] LABS: Band Neutrophils 3 % (0-10); Hypochromasia 1+; Lymphocytes 7 % (20-55); Microcytosis 1+; Ovalocytes Slight; Platelet Estimate Adequate; Segmented Neutrophils 79 % (50-85); Total Cells Counted 100
[2018-02-28] MEDS: ACETYLCYSTEINE 20% 800 MG/4 ML VIAL RESP TX SCH ×2 (07:13→15:17)
[2018-02-28] MEDS: SKIN HEALING OINT (AQUAPHOR) 50 GM TUBE TOP SCH (08:39)
[2018-02-28] MEDS: POTASSIUM PHOS/SOD PHOS POWDER 250 MG PACK PO SCH ×3 (08:39→21:36)
[2018-02-28] MEDS: MONTELUKAST 10 MG TABLET PO SCH (08:39)
[2018-02-28] MEDS: FAMOTIDINE 20 MG TABLET PEG SCH (08:39)
[2018-02-28] MEDS: MEROPENEM 1,000 MG in SYRINGE 1 EACH IV SCH (17:14)
[2018-02-28] MEDS: GENTAMICIN INJ 160 MG in SODIUM CHLORIDE 0.9% 100 ML IV SCH (17:15)
[2018-02-28] MEDS: ENOXAPARIN 40 MG/0.4 ML SYRINGE SUBCUT SCH (17:15)
[2018-02-28] MEDS: BACLOFEN 10 MG TABLET PEG SCH (21:35)
[2018-02-28] MEDS: ATORVASTATIN 10 MG TABLET PEG SCH (21:35)
[2018-02-28] MEDS: DIAZEPAM 5 MG TABLET PO SCH (21:35)
[2018-03-01] MEDS: MEROPENEM 1,000 MG in SYRINGE 1 EACH IV SCH ×3 (01:45→16:28)
[2018-03-01] MEDS: ALBUTEROL/IPRATROPIUM 3 ML NEB RESP TX SCH ×7 (01:56→23:58)
[2018-03-01] MEDS: ACETYLCYSTEINE 20% 800 MG/4 ML VIAL RESP TX SCH ×3 (01:59→23:58)
[2018-03-01 04:58] LABS: Calcium 9.4 MG/DL (8.5-10.1)
[2018-03-01] MEDS: INSULIN LISPRO 100 UNIT/ML SUBCUT SCH ×3 (05:55→18:20)
[2018-03-01] MEDS: FAMOTIDINE 20 MG TABLET PEG SCH (09:12)
[2018-03-01] MEDS: SKIN HEALING OINT (AQUAPHOR) 50 GM TUBE TOP SCH (09:12)
[2018-03-01] MEDS: POTASSIUM PHOS/SOD PHOS POWDER 250 MG PACK PO SCH ×3 (09:12→20:14)
[2018-03-01] MEDS: MONTELUKAST 10 MG TABLET PO SCH (09:12)
[2018-03-01] MEDS: methylPREDNISolone SOD SUC 40 MG/1 ML VIAL IV SCH ×2 (12:09→23:44)
[2018-03-01] MEDS: GENTAMICIN INJ 160 MG in SODIUM CHLORIDE 0.9% 100 ML IV SCH (16:38)
[2018-03-01] MEDS: ENOXAPARIN 40 MG/0.4 ML SYRINGE SUBCUT SCH (17:19)
[2018-03-01] MEDS: ATORVASTATIN 10 MG TABLET PEG SCH (20:14)
[2018-03-01] MEDS: BACLOFEN 10 MG TABLET PEG SCH (20:15)
[2018-03-01] MEDS: DIAZEPAM 5 MG TABLET PO SCH (20:15)
[2018-03-02] MEDS: INSULIN LISPRO 100 UNIT/ML SUBCUT SCH ×4 (01:21→18:26)
[2018-03-02] MEDS: ACETYLCYSTEINE 20% 800 MG/4 ML VIAL RESP TX SCH ×3 (01:21→15:37)
[2018-03-02] MEDS: MEROPENEM 1,000 MG in SYRINGE 1 EACH IV SCH ×3 (01:43→16:30)
[2018-03-02] MEDS: ALBUTEROL/IPRATROPIUM 3 ML NEB RESP TX SCH ×5 (03:49→20:08)
[2018-03-02 04:17] LABS: Basophils # 0.1 10*3/uL (0.0-0.2); Basophils % 0.5 % (0.0-0.8); Eosinophils # 0.1 10*3/uL (0.0-0.87); Eosinophils % 0.5 % (0.00-10.9); Hematocrit 32.5 VOL% (35.7-47.0); Hemoglobin 10.6 GM/DL (12.0-16.0); Immature Granulocytes % 10.4 %; Lymphocytes # 0.8 10*3/uL (1.4-4.0); Mean Corpuscular HGB Conc 32.6 GM/DL (32-36); Mean Corpuscular Hemoglobin 28 PG (27-34); Mean Corpuscular Volume 87.1 FL (87-102); Mean Platelet Volume 12.8 FL (9.6-12.0); Monocytes # 0.7 10*3/uL (0.11-0.8); Monocytes % 6.1 % (1.7-12.7); NRBC # 0.03 10*3/uL; Neutrophils # 8.7 10*3/uL (1.4-7.4); Neutrophils % 75.5 % (38.7-73.9); Platelet Count 293 T/CUMM (130-400); Red Blood Count 3.73 MC/CUMM (3.8-5.5); Red Cell Distribution Width 17.6 % (9.3-17.3); White Blood Count 11.6 T/CUMM (4-12)
[2018-03-02 04:27] LABS: PT Patient Result 10.7 SECS; Partial Thromboplastin Time 21.5 SECS (0-40)
[2018-03-02 04:52] LABS: Hypochromasia 1+; Lymphocytes 7 % (20-55); Microcytosis 1+; Ovalocytes Slight; Platelet Estimate Adequate; Segmented Neutrophils 89 % (50-85); Total Cells Counted 100
[2018-03-02] MEDS ORDERED: LIDOCAINE 2% VISCOUS 100 ML BOTTLE SWISH/SPIT ONE (07:00)
[2018-03-02] MEDS ORDERED: LIDOCAINE 2% 20 ML VIAL RESP TX ONE (07:00)
[2018-03-02] MEDS ORDERED: diphenhydrAMINE 50 MG/1 ML VIAL IM ONE (07:00)
[2018-03-02] MEDS ORDERED: LIDOCAINE 1% 20 ML VIAL MISC INJ ONE (07:00)
[2018-03-02] MEDS: FAMOTIDINE 20 MG TABLET PEG SCH (08:17)
[2018-03-02] MEDS: POTASSIUM PHOS/SOD PHOS POWDER 250 MG PACK PO SCH ×3 (08:17→21:42)
[2018-03-02] MEDS: MONTELUKAST 10 MG TABLET PO SCH (08:18)
[2018-03-02] MEDS: SKIN HEALING OINT (AQUAPHOR) 50 GM TUBE TOP SCH (10:52)
[2018-03-02] MEDS: methylPREDNISolone SOD SUC 40 MG/1 ML VIAL IV SCH ×2 (11:30→23:55)
[2018-03-02] MEDS: GENTAMICIN INJ 160 MG in SODIUM CHLORIDE 0.9% 100 ML IV SCH (18:30)
[2018-03-02] MEDS: ENOXAPARIN 40 MG/0.4 ML SYRINGE SUBCUT SCH (18:42)
[2018-03-02] MEDS: BACLOFEN 10 MG TABLET PEG SCH (21:42)
[2018-03-02] MEDS: DIAZEPAM 5 MG TABLET PO SCH (21:42)
[2018-03-02] MEDS: ATORVASTATIN 10 MG TABLET PEG SCH (21:42)
[2018-03-03] MEDS: MEROPENEM 1,000 MG in SYRINGE 1 EACH IV SCH ×3 (00:30→16:59)
[2018-03-03] MEDS: INSULIN LISPRO 100 UNIT/ML SUBCUT SCH ×4 (01:00→18:14)
[2018-03-03] MEDS: ACETYLCYSTEINE 20% 800 MG/4 ML VIAL RESP TX SCH ×6 (01:09→23:02)
[2018-03-03] MEDS: ALBUTEROL/IPRATROPIUM 3 ML NEB RESP TX SCH ×7 (01:09→23:02)
[2018-03-03] MEDS: SKIN HEALING OINT (AQUAPHOR) 50 GM TUBE TOP SCH (08:37)
[2018-03-03] MEDS: MONTELUKAST 10 MG TABLET PO SCH (08:39)
[2018-03-03] MEDS: FAMOTIDINE 20 MG TABLET PEG SCH (08:39)
[2018-03-03] MEDS: POTASSIUM PHOS/SOD PHOS POWDER 250 MG PACK PO SCH ×3 (08:39→20:43)
[2018-03-03] MEDS: methylPREDNISolone SOD SUC 40 MG/1 ML VIAL IV SCH (11:46)
[2018-03-03] MEDS: ENOXAPARIN 40 MG/0.4 ML SYRINGE SUBCUT SCH (17:00)
[2018-03-03] MEDS: GENTAMICIN INJ 160 MG in SODIUM CHLORIDE 0.9% 100 ML IV SCH (17:00)
[2018-03-03] MEDS: ATORVASTATIN 10 MG TABLET PEG SCH (20:44)
[2018-03-03] MEDS: BACLOFEN 10 MG TABLET PEG SCH (20:44)
[2018-03-03] MEDS: DIAZEPAM 5 MG TABLET PO SCH (20:44)
[2018-03-04] MEDS: MEROPENEM 1,000 MG in SYRINGE 1 EACH IV SCH ×3 (00:21→16:12)
[2018-03-04] MEDS: methylPREDNISolone SOD SUC 40 MG/1 ML VIAL IV SCH (00:21)
[2018-03-04] MEDS: INSULIN LISPRO 100 UNIT/ML SUBCUT SCH ×4 (01:53→17:30)
[2018-03-04] MEDS: ALBUTEROL/IPRATROPIUM 3 ML NEB RESP TX SCH ×6 (03:19→23:36)
[2018-03-04 04:00] LABS: Calcium 9.5 MG/DL (8.5-10.1); Osmolality,Calculated 297.1 MOS/KG (273-304); Potassium 4.7 MMOL/L (3.5-5.1)
[2018-03-04] MEDS: ACETYLCYSTEINE 20% 800 MG/4 ML VIAL RESP TX SCH ×3 (07:21→23:36)
[2018-03-04] MEDS: SKIN HEALING OINT (AQUAPHOR) 50 GM TUBE TOP SCH (09:10)
[2018-03-04] MEDS: FAMOTIDINE 20 MG TABLET PEG SCH (09:13)
[2018-03-04] MEDS: MONTELUKAST 10 MG TABLET PO SCH (09:13)
[2018-03-04] MEDS: POTASSIUM PHOS/SOD PHOS POWDER 250 MG PACK PO SCH ×3 (09:15→20:34)
[2018-03-04] MEDS: predniSONE 20 MG TABLET PEG SCH ×2 (09:15→20:34)
[2018-03-04] MEDS: GENTAMICIN INJ 160 MG in SODIUM CHLORIDE 0.9% 100 ML IV SCH (16:12)
[2018-03-04] MEDS: ENOXAPARIN 40 MG/0.4 ML SYRINGE SUBCUT SCH (17:13)
[2018-03-04] MEDS: BACLOFEN 10 MG TABLET PEG SCH (20:33)
[2018-03-04] MEDS: DIAZEPAM 5 MG TABLET PO SCH (20:33)
[2018-03-04] MEDS: ATORVASTATIN 10 MG TABLET PEG SCH (20:34)
[2018-03-05] MEDS: MEROPENEM 1,000 MG in SYRINGE 1 EACH IV SCH ×3 (00:21→16:15)
[2018-03-05] MEDS: INSULIN LISPRO 100 UNIT/ML SUBCUT SCH ×4 (00:21→17:37)
[2018-03-05] MEDS: ALBUTEROL/IPRATROPIUM 3 ML NEB RESP TX SCH ×6 (03:43→23:27)
[2018-03-05] MEDS: ACETYLCYSTEINE 20% 800 MG/4 ML VIAL RESP TX SCH ×3 (08:14→23:27)
[2018-03-05] MEDS: SKIN HEALING OINT (AQUAPHOR) 50 GM TUBE TOP SCH (09:10)
[2018-03-05] MEDS: MONTELUKAST 10 MG TABLET PO SCH (09:11)
[2018-03-05] MEDS: FAMOTIDINE 20 MG TABLET PEG SCH (09:11)
[2018-03-05] MEDS: POTASSIUM PHOS/SOD PHOS POWDER 250 MG PACK PO SCH ×3 (09:11→21:34)
[2018-03-05] MEDS: predniSONE 20 MG TABLET PEG SCH ×2 (09:11→21:34)
[2018-03-05] MEDS: MAGNESIUM HYDROXIDE SUSP 30 ML UDCUP PO PRN ×2 (09:12→17:24)
[2018-03-05] MEDS: GENTAMICIN INJ 160 MG in SODIUM CHLORIDE 0.9% 100 ML IV SCH (16:15)
[2018-03-05] MEDS: metFORMIN 500 MG TABLET PEG SCH (16:16)
[2018-03-05] MEDS: ENOXAPARIN 40 MG/0.4 ML SYRINGE SUBCUT SCH (17:23)
[2018-03-05] MEDS ORDERED: SODIUM PHOSPHATE ENEMA 133 ML BOTTLE RECTAL PRN (21:05)
[2018-03-05] MEDS: DIAZEPAM 5 MG TABLET PO SCH (21:34)
[2018-03-05] MEDS: BACLOFEN 10 MG TABLET PEG SCH (21:34)
[2018-03-05] MEDS: ATORVASTATIN 10 MG TABLET PEG SCH (21:34)
[2018-03-06] MEDS: INSULIN LISPRO 100 UNIT/ML SUBCUT SCH ×3 (01:33→12:17)
[2018-03-06] MEDS: MEROPENEM 1,000 MG in SYRINGE 1 EACH IV SCH ×2 (01:50→09:28)
[2018-03-06] MEDS: ALBUTEROL/IPRATROPIUM 3 ML NEB RESP TX SCH ×3 (02:54→11:30)
[2018-03-06 05:05] LABS: Calcium 8.8 MG/DL (8.5-10.1); Osmolality,Calculated 304.3 MOS/KG (273-304); Potassium 4.8 MMOL/L (3.5-5.1)
[2018-03-06] MEDS: ACETYLCYSTEINE 20% 800 MG/4 ML VIAL RESP TX SCH (07:19)
[2018-03-06] MEDS: metFORMIN 500 MG TABLET PEG SCH (09:18)
[2018-03-06] MEDS: MONTELUKAST 10 MG TABLET PO SCH (09:18)
[2018-03-06] MEDS: predniSONE 20 MG TABLET PEG SCH (09:18)
[2018-03-06] MEDS: FAMOTIDINE 20 MG TABLET PEG SCH (09:18)
[2018-03-06] MEDS: SKIN HEALING OINT (AQUAPHOR) 50 GM TUBE TOP SCH (09:19)
[2018-03-06] MEDS: POTASSIUM PHOS/SOD PHOS POWDER 250 MG PACK PO SCH (09:19)
[2018-03-06 12:54] VITALS: BP 116/55
== END 2018-03-06 14:49 | disposition home health service (06) | DRG 166 ==
LOC: EDUNIT# → EDBD → N.ED 13:15 → SUATTDRO 16:10 → N.EDINP 16:10 → N.TELES 19:04
PROVIDERS: ADMIT Internal Medicine; ATTEND Internal Medicine Infectious Disease